=== PATIENT | female | born 1960 | race Caucasian/White ===

== ENCOUNTER → 2017-02-01 | Outpatient (CLI) | payer OTHER ==
--- NOTE | 2017-02-01 16:01 | RAD ---
CT of the abdomen and pelvis without contrast, 02/01/2017: History: Bilateral flank pain Noncontrast scans were obtained through the urinary tract utilizing the renal stone protocol. On the left, there is moderate hydronephrosis. There are 2 calculi located at the ureteropelvic junction level. The largest of these measures 18 mm while the smaller calculus measures 8 mm. There are couple of additional tiny medullary calcifications on the left. No distal ureteral calculus is identified. There are numerous pelvic phleboliths bilaterally. There are numerous intrarenal calculi on the right. The largest of these lies in the upper pole collecting system and measures 24 mm. The right renal collecting system and right ureter are not dilated. No right ureteral calculus is identified. The urinary bladder is collapsed and poorly defined. No bladder calculi are seen. The unopacified liver is unremarkable. There are numerous gallstones within the gallbladder. The gallbladder collins do not appear to be thickened. No pericholecystic edema is seen. The pancreas is unremarkable. The spleen is of normal size. No aortic abnormality is seen. No abdominal or pelvic adenopathy is identified. The uterus is within normal limits in size. The bowel loops are not dilated. There is a moderate amount stool in the colon. A small hiatal hernia is noted. No free fluid or free air is evident in the abdomen or pelvis. There is a small umbilical hernia containing only fat. There is moderate degenerative disc disease at L5-S1. IMPRESSION: 1. Bilateral intrarenal calculi. 2. Obstructing calculi at the left ureteropelvic junction junction with moderate associated left hydronephrosis. 3. Cholelithiasis. 4. Small hiatal hernia. PQRS Compliance Statement: One or more of the following individualized dose reduction techniques were utilized for this examination: 1. Automated exposure control 2. Adjustment of the mA and/or kV according to patient size 3. Use of iterative reconstruction technique
== END | disposition home or self-care (01) ==
LOC: CT 15:28
PROVIDERS: ATTEND Nurse Practitioner Adult Health
DX: N20.2 Calculus of kidney with calculus of ureter (principal); K80.20 Calculus of gallbladder without cholecystitis without obstruction; M51.37 Other intervertebral disc degeneration, lumbosacral region; K44.9 Diaphragmatic hernia without obstruction or gangrene
CPT/HCPCS: 74176